=== PATIENT | female | born 2000 | race Caucasian/White ===

== ENCOUNTER 2019-09-20 21:59 | Emergency (ER) | payer MEDICAID ==
[~2019-09-20] VITALS: Ht 172.7 cm; Wt 65.8 kg
[2019-09-20 22:10] VITALS: BP 144/70
--- NOTE | 2019-09-20 22:10 | NUR ---
TO BED # 10 AMBULATORY
--- NOTE | 2019-09-20 23:00 | NUR ---
19/F PRESENTS WITH FAMILY/FRIEND, S/P FALL FROM A SKATEBOARD WHILE HOLDING ON/TAILGATING A TRUCK, 9 HRS AGO. PT C/O L WRIST, DISTAL FOREARM AND HAND PAIN. MODERATE SWELLING NOTED, MILD ABRASIONS, +2 RADIAL PULSE AND CAP REFILL<3S DISTALLY. DECREASED ROM. PT AWAKE AND ALERT, SKIN NORMAL COLOR WARM AND DRY, RR EVEN AND UNLABORED. DENIES MED HX OR RX.
[2019-09-20] MEDS ORDERED: KETOROLAC 60 MG/2 ML VIAL IM ONE (23:15)
[2019-09-20] MEDS ORDERED: IBUPROFEN 600 MG TAB PO ONE (23:40)
[2019-09-21 00:04] VITALS: BP 144/70
--- NOTE | 2019-09-21 00:04 | NUR ---
Patient discharged with v/s stable. Written and verbal after care instructions ABOUT WRIST PAIN given and explained. Patient alert, oriented and verbalized understanding of instructions. Ambulatory with steady gait. All questions addressed prior to discharge. ID band removed. Patient advised to follow up with PMD. Rx of MOTRIN, NORCO given. Patient educated on indication of medication including possible reaction and side effects. Opportunity to ask questions provided and answered.
--- NOTE | 2019-09-21 00:04 | NUR ---
PLACED WRIST AND FOREARM SPLINT ON PT'S LEFT WRIST, CHECKED PMSC'S BEFORE AND AFTER PLACEMENT OF SPLINT.
== END 2019-09-21 00:04 | disposition home or self-care (01) ==
LOC: MED 21:59
DX: M25.532 Pain in left wrist (principal); F17.200 Nicotine dependence, unspecified, uncomplicated; V00.131A Fall from skateboard, initial encounter; Y93.51 Activity, roller skating (inline) and skateboarding; Y92.89 Other specified places as the place of occurrence of the external cause; Y99.8 Other external cause status
CPT/HCPCS: 29125; 73130; 99283; Q0092; J1885